=== PATIENT | female | born 2000 | race Caucasian/White ===

== ENCOUNTER → 2022-03-12 12:25 | Outpatient (CLI) | payer BC, SELFPAY ==
--- NOTE | ~2022-03-12 | XR_ITS ---
XR lumbar spine 2-3V DATE: 03/12/2022 13:00 INDICATION: Low back pain TECHNIQUE: AP, lateral and coned lateral lumbosacral views COMPARISON: None FINDINGS: There is minimal levoscoliosis of the lumbar spine. No fracture or bone destruction is evid ent. The lumbar pedicles are intact. Lumbar and lumbosacral interspaces are well preserved. The sacro iliac joints appear normal. IMPRESSION: Minimal levoscoliosis Reviewed, dictated and finalized at location B. IMPRESSION: Minimal levoscoliosis
--- NOTE | ~2022-03-12 | XR_ITS ---
XR thoracic spine 2V DATE: 03/12/2022 13:00 INDICATION: Mid back pain TECHNIQUE: AP, lateral, swimmer views COMPARISON: None FINDINGS: There is approximately 32 degrees levoscoliosis measured from T2 to T5. There is 30 degrees dextroscoliosis measured from T5 to T8. There is 12 degrees levoscoliosis measured from T8 to L1. No fracture, dislocation or bone destruction of the thoracic spine is evident. The pedicles appear in tact. No paraspinal soft tissue thickening. IMPRESSION: Prominent thoracic scoliosis Reviewed, dictated and finalized at location B.
--- NOTE | ~2022-03-12 | XR_ITS ---
XR_CERV2-3V_CR DATE: 03/12/2022 12:59 INDICATION: Neck pain TECHNIQUE: AP, lateral, open-mouth views COMPARISON: None FINDINGS: There is approximately 25 degrees levoscoliosis of the upper thoracic spine measured from T 2 to T6. There is reversal cervical curvature. C1 and C2 are normally aligned and the odontoid process is intact. No cervical spine fracture or disl ocation or locked facet or prevertebral soft tissue swelling is detected. The cervical interspaces ar e preserved. IMPRESSION: Reversal cervical curvature 25 degrees upper thoracic levoscoliosis Reviewed, dictated and finalized at [facility]. Reviewed, dictated and finalized at location [facility].
== END ==
PROVIDERS: Visit Provider Chiropractor
DX: M54.2 Cervicalgia (principal); M54.6 Pain in thoracic spine; M54.50 Low back pain, unspecified; M41.82 Other forms of scoliosis, cervical region; M41.86 Other forms of scoliosis, lumbar region; M41.84 Other forms of scoliosis, thoracic region; M53.82 Other specified dorsopathies, cervical region
CPT/HCPCS: 72040; 72070; 72100

== ENCOUNTER 2023-07-31 13:35 | Emergency (ER) | payer BC, SELFPAY ==
[2023-07-31 13:53] VITALS: BP 110/74; PULSE 83; RESP 16; TEMP 36.9; O2SAT 98
--- NOTE | 2023-07-31 14:32 | ED.URI ---
HPI - URI/Sore Throat General Chief Complaint: Upper Respiratory Infection Stated Complaint: SORE THROAT/STUFFY NOSE/COUGH Time Seen by Provider: 07/31/23 14:32 Source: patient, RN notes reviewed and old records reviewed Mode of arrival: ambulatory Limitations: no limitations History of Present Illness HPI Narrative: 22 year old female who presents to [facility] accompanied by mother with complaints of sore throat, sinus congestion with drainage and sinus pressure and cough which started 2 days ago. Patient reports history of sinus infections with one recently less than a month ago and was treated with antibiotic and steroid with symptoms improved till the past 2-3 days. Patient reports no nausea vomiting or diarrhea, body aches, or any acute fevers chills or sweats. MD elicited complaint: cough, sore throat, rhinorrhea, nasal congestion and sinus pain Pertinent past history: sinusitis Onset (ago): day(s) (2) Consistency: progressively worsening Pain scale (0-10): 4 Description of mucous: clear and yellow (light yellow) Able to tolerate fluids by mouth: Yes Treatments prior to arrival: acetaminophen, ibuprofen and cold medicine Related Data Allergies Allergy/AdvReac Type Severity Reaction Status Date / Time No Known Allergies Allergy Unverified 09/16/18 14:52 Review of Systems Review of Systems: CONSTITUTIONAL: Denies malaise, chills, sweats, or fever. EYES: Denies visual changes, redness, or discharge. ENT: Reports rhinorrhea, congestion, sinus pain, no otalgia and positive for sore throat. CARDIOVASCULAR: Denies chest pain, palpitations, or edema. RESPIRATORY: Reports cough.? Denies dyspnea. GASTROINTESTINAL: Denies abdominal pain, nausea, vomiting, diarrhea SKIN: Denies rash or itching. MUSCULOSKELETAL: Denies myalgia. NEUROLOGIC:reports mild headache. All systems reviewed & are unremarkable except as noted in HPI and below PMFSH Past Medical History Medical History (Updated 08/01/23 @ 11:46 by Christine Gooden NP) Pharyngitis Sinusitis Social History Social History (Updated 08/01/23 @ 11:42 by Christine Gooden NP) Smoking status: Never smoker Alcohol intake: never Substance use type: does not use Occupation/Education: student Gender identity (if verbalized by the patient): Female Comments At time of signature, agree with nursing past medical, surgical, social and family history. There is no relevant family history pertinent to the presenting complaint Exam Narrative: GENERAL: Well-appearing, well-nourished, and in no acute distress. HEAD: Normocephalic EYES: PERRLA, conjunctivae clear ENT: Nares clear, turbinates edematous and erythematous, clear to light yellow discharge, sinus pressure Mucous membranes moist. TM pearly luke with dull light reflex bilaterally; no tragal tenderness. Oropharynx erythematous without lesions. Tonsils not enlarged and without exudate, no drooling, no hoarseness, no trismus, uvula midline.post nasal drainage NECK: Supple. No lymphadenopathy CHEST: Clear to auscultation, breath sounds equal. No wheezing, rhonchi, rales, or stridor. No respiratory distress, speaks in full sentences.dry cough SAO2 98% on room air HEART: Regular rate and rhythm. No murmur heard. SKIN: Warm, dry, no rash. NEURO: Alert and oriented x3. PSYCH: Normal mood and affect Course Course Emergency Course: Patient is aware of diagnosis, understands and agrees to treatment plan.? Anticipatory guidance given.? Patient agrees to follow-up as directed and is aware of reasons to seek care at the emergency department. Portions of this record may have been created with voice recognition software Level of Care: Express Care Visit Vital Signs Vital signs: Vital Signs Temperature 36.9 C 07/31/23 13:53 Pulse Rate 83 07/31/23 13:53 Respiratory Rate 16 07/31/23 13:53 Blood Pressure 110/74 07/31/23 13:53 Pulse Oximetry 98 07/31/23 13:53
== END 2023-07-31 14:56 | disposition home or self-care (01) ==
PROVIDERS: Emergency Provider Registered Nurse
DX: J06.9 Acute upper respiratory infection, unspecified (principal); J02.9 Acute pharyngitis, unspecified; Z20.822 Contact with and (suspected) exposure to COVID-19
CPT/HCPCS: 87081; 87426; 87804; 87880; 99203; C9803; G0463